=== PATIENT | male | born 1985 | race Caucasian/White ===

== ENCOUNTER 2021-01-10 17:57 | Emergency (ER) | payer OTHER ==
[2021-01-10] MEDS ORDERED: KEFLEX250 MG PO (19:54)
== END 2021-01-10 20:30 | disposition home or self-care (01) ==
LOC: FER 17:57
DX: S61.411A Laceration without foreign body of right hand, initial encounter (principal); W29.8XXA Contact with other powered hand tools and household machinery, initial encounter; Y92.89 Other specified places as the place of occurrence of the external cause; Y99.0 Civilian activity done for income or pay